=== PATIENT | male | born 1960 | race Caucasian/White ===

== ENCOUNTER 2020-06-16 16:00 | Outpatient (REF) | payer BC, SELFPAY | END 2020-06-16 16:01 | disposition home or self-care (01) | LOC: HO.LAB 16:00 | PROVIDERS: Visit Provider Internal Medicine | DX: Z20.828 Contact with and (suspected) exposure to other viral communicable diseases (principal) | CPT/HCPCS: 87635 ==

== ENCOUNTER 2023-12-26 06:05 | Emergency (ER) | payer BC, SELFPAY ==
--- NOTE | ~2023-12-26 | XR_ITS ---
EXAMINATION: XR FINGER, RIGHT CLINICAL INFORMATION: [place] fifth digit COMPARISON: None available. TECHNIQUE: Three views of the right small finger. FINDINGS: There is a portion of a fishhook embedded in the medial palmar soft tissues of the fifth digit at the level of the distal phalanx The bones and soft tissues are otherwise unremarkable. No fracture. Alignment is anatomic. Joint spaces are maintained. XR/XR finger RT min 2V IMPRESSION: There is a portion of a fishhook embedded in the medial palmar soft tissues of the fifth digit
[2023-12-26 06:16] VITALS: BP 157/89; PULSE 61; RESP 12; TEMP 36.1; O2SAT 98; BMI 31.4
--- NOTE | 2023-12-26 08:04 | ED_ITS ---
HPI - Extremity Problem General Chief complaint: Extremity Injury, Upper Stated complaint: fish hook in finger Time Seen by Provider: 12/26/23 07:31 Source: patient Mode of arrival: ambulatory Limitations: no limitations History of Present Illness HPI Narrative: 63 year old male presents w/ fish hook to right 5th finger happened [employer]. Tried to take it out w/o success. No pain. Tetanus UTD. No other reported injuries from fish hook. Related Data Allergies Allergy/AdvReac Type Severity Reaction Status Date / Time No Known Allergies Allergy Verified 12/26/23 06:18 [No Known Allergies*] Review of Systems Review of Systems: Yes all other systems are reviewed and are negative [facility] Past Medical History Attestation statement: The following information was validated with the patient. Source: old records reviewed and nursing notes reviewed Social History Social History Smoked in Last 30 Days: No Use of substances other than those prescribed or required for medical reasons: No Advance Directives: No Advance Directives Information Provided: No Do you have a plan to hurt others: No Plan Physical Exam Vital Signs: Vital Signs: Last Vital Signs Temp 97.0 F 12/26/23 06:16 Pulse 61 12/26/23 06:16 Resp 12 12/26/23 06:16 BP 157/89 H 12/26/23 06:16 Pulse Ox 98 12/26/23 06:16 O2 Del Method Room Air 12/26/23 06:16 BMI result Body Mass Index 31.4 vss Appearance: Alert.? Oriented X3.? No acute distress.? Head: Normocephalic, atraumatic, no step-offs or deformities Eyes: Pupils equal, round and reactive to light.? Neck: Normal inspection.? Neck supple.? CVS: Pulses normal.? Respiratory: No respiratory distress Abdomen: Soft and nontender.? Skin: Skin warm and dry.? Normal skin color.? Normal skin turgor.? Extremities: No lower extremity edema.? No calf ttp. 5/5 strength to bilateral upper and lower extremities 2+ radial pulses equal and b/l. Normal sensation distally. No wrist drop. Normal cap refl < 2 seconds b/l UR digits. + fish hook barbed stuck to right distal aspect of 5th digit fat pad Neuro: Oriented X 3.? No motor deficit.? No sensory deficit. CN 2-12 intact Course Reevaluation(s) Reevaluation #1: FB removed successfully. Full ROM to all digits on right hand. Patients finger no longer as numb as it was during nerve block. Area cleaned and dressed no longer bleeding . Patient to be DC home. No further intervention. Educated patient on diagnosis and treatment plan, answered all question, patient verbalizes understanding. At this time patient will be discharged home, advised to return with new or worsening symptoms. Educated on worrisome signs and symptoms and when to return. At this time I feel comfortable discharge home. Time: 08:34 Medical Decision Making Medical Decision Making MDM Narrative: 63 yo m presents w/ fish hook to r finger happened [employer]. NO numbness or tingling . UTD ont tetanus PE 2+ radial pulses equal and b/l. Normal sensation distally. No wrist drop. Normal cap refl < 2 seconds b/l UR digits. + fish hook barbed stuck to right distal aspect of 5th digit fat pad Hx and pe likely FB in finger. No signs of abcess, celluliits. Unlikley fx/ dislocaiton, nv compromise, threat to limb Plan- removal w/ lido / nerve block and twyla clamps. Differential Diagnosis Differential Diagnoses: The differential diagnosis associated with the presentation includes Hx and pe likely FB in finger. No signs of abcess, celluliits. Unlikley fx/ dislocaiton, nv compromise, threat to limb Admission/Observation Consideration of admission/observation: Escalation of care including admission/observation considered Unlikely Tests considered The following testing was considered but not selected: Unlikley fx/ dislocaiton, no need for imaging Discharge Plan Discharge Clinical Impression: Fish hook in finger Patient Disposition: Home, Self-Care Additional Instructions: Take your medications as prescribed. If you were prescribed antibiotics today, it is important that you take your medication to their entirety, do not skip any doses, do not finish them early. Follow-up with your primary care provider this week. Return to the emergency department with new or worsening symptoms. Such as fevers, chills, chest pain, shortness of breath, nausea, vomiting, dizziness, headache, vision changes, lethargy In case of emergency call 911 Enjoy fishing! Referrals: Physician,Shilpi J [Primary Care Provider] - 2 days Print Language: Dominican
[2023-12-26] MEDS: Lidocaine HCl 2 % MPF 5 ML VIAL 30 ML INFILTRATI (08:34)
[2023-12-26 08:38] VITALS: BP 121/84; PULSE 54; RESP 20; TEMP 36.6; O2SAT 98
== END 2023-12-26 08:40 | disposition home or self-care (01) ==
PROVIDERS: Emergency Provider Emergency Medicine Emergency Medical Services
DX: S61.246A Puncture wound with foreign body of right little finger without damage to nail, initial encounter (principal); X58.XXXA Exposure to other specified factors, initial encounter; Y93.9 Activity, unspecified; Y92.9 Unspecified place or not applicable; Y99.9 Unspecified external cause status
CPT/HCPCS: 73140; 99284

== ENCOUNTER 2024-02-28 11:36 | Outpatient (AMB) | payer BC, SELFPAY ==
[2024-02-28 11:43] VITALS: BP 122/80; PULSE 73; TEMP 36.7; O2SAT 96; BMI 31.7
--- NOTE | 2024-02-28 11:43 | MHC.OFFWIV ---
Intake Vital Signs 02/28/24 11:43 Height 5 ft 8 in Weight 208 lb 6 oz BMI 31.7 BP 122/80 Blood Pressure Location Rt brachial Position Sitting Pulse 73 Pulse Source Pulse Oximeter Temp 98.0 F Temp Source Oral Pulse Oximetry (%) 96 Intake Visit Reasons: EP multiple bee stings belly/legs Intake Note: pt is here for multiple bee stings on belly and legs Patient Tobacco Use Status: Never used Tobacco Allergies No Known Allergies [No Known Allergies*] Allergy (Verified 02/28/24 11:44) Do you need a note to return to daycare/school/sports/work: No HPI HPI Comments History of Present Illness Details Patient is a 63-year-old male complaining of multiple bee stings on his legs and abdomen yesterday/about 15 hours ago. He states they all got red and painful but the swelling has gone down on his legs. He states the redness in his abdomen has spread and it is warm. He states he did take a Benadryl which seemed to help his legs feel better but not his abdomen. He denies any fever. He denies any trouble breathing or feeling like his throat is closing COUNT INCLUDES THE [facility] Social History Patient Tobacco Use Status: Never used Tobacco Review of Systems Const All systems reviewed & are unremarkable except as noted in HPI and below Physical Exam Vital Signs: Last Vital Signs Temp 98.0 F 02/28/24 11:43 Pulse 73 02/28/24 11:43 BP 122/80 02/28/24 11:43 Pulse Ox 96 02/28/24 11:43 BMI result Body Mass Index 31.7 Const General: cooperative, healthy appearing, comfortable, no acute distress and well developed Orientation/consciousness: patient oriented x3 Limitations: no limitations Eyes General: appearance normal, both eyes and all related structures Resp Effort & Inspection: normal respiratory effort and able to speak in complete sentences Skin Other: Left lower abdomen has an area of pinpoint purulence surrounded by 10 cm x 15 cm area of warmth and erythema. Two raised 0.5cm erythematous areas on left lateral lower leg, one on right upper lateral leg. Neuro General: patient oriented x3 Assessment & Plan Assessment & Plan (1) Cellulitis: Code(s): L03.90 - Cellulitis, unspecified Qualifiers: Site of cellulitis: trunk Site of cellulitis of trunk: abdominal wall Qualified Code(s): L03.311 - Cellulitis of abdominal wall Plan: Sent doxycycline to the pharmacy, I recommended patient continue taking Benadryl around the clock for the next 1-2 days Plan See above Medications: New doxycycline hyclate 100 mg PO BID 10 tabs 0RF Coding Level of Care Code New Pt Level 3 (66328) Diagnoses Cellulitis of abdominal wall L03.311 Site of cellulitis: trunk Site of cellulitis of trunk: abdominal wall
== END 2024-02-28 13:51 | disposition home or self-care (01) ==
PROVIDERS: Visit Provider Physician Assistant
DX: L03.311 Cellulitis of abdominal wall (principal)
CPT/HCPCS: 99203